=== PATIENT | male | born 1985 | race Hispanic/Latino ===

== ENCOUNTER → 2018-08-17 | Outpatient (CLI) | payer OTHER ==
[~2018-08-17] MED LIST: LORAZEPAM INJ 2 MG/ML VIAL ONE
--- NOTE | 2018-08-17 11:51 | Diagnostic Imaging Report ---
MRI SPINE LUMBAR WO HISTORY: Bilateral posterior leg pain COMPARISON: None. TECHNIQUE: Sagittal T1, sagittal T2, sagittal STIR, axial T2, coronal T2, and axial proton density weighted images of the lumbar spine were obtained without contrast. DISCUSSION: Number of non-rib bearing lumbar vertebral bodies: 5. Alignment: Normal lordosis. No scoliosis. Vertebrae: No fractures, infection or neoplasm. Conus medullaris: Normal, ends at L1-L2. Cauda equina: No masses or arachnoiditis. Posterior paraspinal muscles: Well preserved. No signal abnormalities. Soft tissues: No signal abnormalities. Mild lower lumbar disc degeneration is most prominent at L4-L5. There is a posterior annular fissure at L4-L5. T12-L1: Patent canal and foramina. L1-L2: Patent canal and foramina. L2-L3: Patent canal and foramina. L3-L4: Disc bulge without significant canal or foraminal stenosis. L4-L5: Mild canal stenosis due to disc bulge and superimposed 5 mm left paracentral disc protrusion. The disc protrusion effaces the left lateral recess and abuts the left L5 nerve root. Mild bilateral foraminal stenoses due to disc bulge and facet arthrosis. L5-S1: Disc bulge and superimposed 3 mm right paracentral disc protrusion slightly effaces the right lateral recess. There is no significant central canal stenosis. Mild bilateral foraminal stenoses due to disc bulge and facet arthrosis. IMPRESSION: 1. Mild lower lumbar disc degeneration, most prominent at L4-L5 with posterior annular fissure. 2. Mild degenerative canal stenosis at L4-L5. Associated 5 mm left L4-L5 paracentral disc protrusion abuts the left L5 nerve root. 3. Mild bilateral degenerative foraminal stenoses at L4-L5 and L5-S1 Signed by: Dr. Surendra Garcia M.D. on 08/17/2018 11:47 AM
== END ==
LOC: MRI 08-10 12:02
PROVIDERS: ATTEND Specialist
DX: M99.03 Segmental and somatic dysfunction of lumbar region (principal)
CPT/HCPCS: 72148; J2060